=== PATIENT | female | born 1990 | race Caucasian/White ===

== ENCOUNTER 2016-07-28 14:13 | Emergency (ER) | payer BC, OTHER ==
[~2016-07-28] VITALS: Ht 180.3 cm; Wt 93.0 kg
[~2016-07-28 14:13] MED LIST: PREN1TAB81 PO; RANI150T12 PO
[2016-07-28] MEDS ORDERED: NEOMY/BACITRA/POLYMYXIN B OINT UD PACKET TP ONE ×2 (14:45→15:02)
[2016-07-28] MEDS ORDERED: LIDOCAINE HCL 1% 20 ML VIAL IJ ONE (14:45)
--- NOTE | 2016-07-28 15:00 | NUR ---
Patient discharged to home in stable conditon. Written and verbal after care instructions given. Patient verbalizes understanding of instructions.
== END 2016-07-28 15:23 | disposition home or self-care (01) ==
LOC: ER 14:14
DX: S61.211A Laceration without foreign body of left index finger without damage to nail, initial encounter (principal); F10.20 Alcohol dependence, uncomplicated; Z88.0 Allergy status to penicillin; W45.8XXA Other foreign body or object entering through skin, initial encounter; Y93.89 Activity, other specified; Y99.8 Other external cause status; Y92.89 Other specified places as the place of occurrence of the external cause
CPT/HCPCS: A4217; A4663; J3490

== ENCOUNTER 2016-08-22 23:50 | Emergency (ER) | payer BC ==
[~2016-08-22] VITALS: Ht 177.8 cm; Wt 88.5 kg
--- NOTE | 2016-08-23 00:01 | NUR ---
MSE DONE DR LE AT BEDSIDE.
--- NOTE | 2016-08-23 00:08 | NUR ---
Patient discharged to home in stable conditon. Written and verbal after care instructions given. Patient verbalizes understanding of instructions.
== END 2016-08-23 00:10 | disposition home or self-care (01) ==
LOC: ER 23:50
DX: J06.9 Acute upper respiratory infection, unspecified (principal); F10.20 Alcohol dependence, uncomplicated; Z88.0 Allergy status to penicillin
CPT/HCPCS: 99281; A4663

== ENCOUNTER 2016-09-15 18:07 | Emergency (ER) | payer BC ==
[~2016-09-15] VITALS: Ht 180.3 cm; Wt 95.3 kg
--- NOTE | 2016-09-15 18:43 | NUR ---
DR LEO AT THE BEDSIDE FOR EVAL AND EXAM.
--- NOTE | 2016-09-15 19:04 | NUR ---
Patient discharged to home in stable conditon. Written and verbal after care instructions given. Patient verbalizes understanding of instructions.
[2016-09-15 19:05] VITALS: BP 134/76
== END 2016-09-15 19:08 | disposition home or self-care (01) ==
LOC: ER 18:09
DX: J32.9 Chronic sinusitis, unspecified (principal); R51 Headache; G50.0 Trigeminal neuralgia; F10.20 Alcohol dependence, uncomplicated; Z88.0 Allergy status to penicillin
CPT/HCPCS: A4663

== ENCOUNTER 2016-10-27 13:49 | Emergency (ER) | payer BC ==
[~2016-10-27] VITALS: Ht 172.7 cm; Wt 95.3 kg
[2016-10-27] MEDS ORDERED: METOCLOPRAMIDE HCL 10 MG/2 ML VIAL IV ONE (14:30)
[2016-10-27] MEDS ORDERED: diphenhydrAMINE 50 MG/1 ML VIAL IV ONE (14:30)
[2016-10-27] MEDS ORDERED: IV NORMAL SALINE 1000 ML BAG IV ONE (14:30)
[2016-10-27] MEDS ORDERED: KETOROLAC TROMETHAMINE 30 MG INJ IVP ONE (14:30)
[2016-10-27] MEDS ORDERED: KETOROLAC TROMETHAMINE 30 MG INJ ONE (14:43)
[2016-10-27] MEDS ORDERED: diphenhydrAMINE 50 MG/1 ML VIAL ONE (14:43)
[2016-10-27] MEDS ORDERED: METOCLOPRAMIDE HCL 10 MG/2 ML VIAL ONE (14:43)
[2016-10-27 14:46] LABS: BASOPHILS # (AUTO) 0.1 K/uL (0.0-8.0); BASOPHILS % (AUTO) 0.9 % (0.0-2.0); EOSINOPHILS # (AUTO) 0.1 K/uL (0.0-0.7); EOSINOPHILS % (AUTO) 1.4 % (0.0-7.0); HEMOGLOBIN 10.6 G/DL (12.0-16.0); LYMPHOCYTES # (AUTO) 1.8 K/UL (0.8-4.8); LYMPHOCYTES % (AUTO) 29.3 % (20.5-51.5); MEAN CORPUSCULAR HEMOGLOBIN 26.1 UUG (27.0-31.0); MEAN CORPUSCULAR HGB CONC 32 g/dL (32.0-37.0); MONOCYTES # (AUTO) 0.4 K/UL (0.1-1.30); MONOCYTES % (AUTO) 5.9 % (0.0-11.0); NEUTROPHILS # (AUTO) 3.9 K/UL (1.8-8.9); NEUTROPHILS % (AUTO) 62.5 % (38.5-71.5); PLATELET COUNT (AUTO) 284 K/UL (150-450); RED BLOOD CELL COUNT(AUTO) 4.07 MIL/UL (4.2-5.4); WHITE BLOOD COUNT (AUTO) 6.3 K/UL (4.0-11.2)
[2016-10-27 14:49] LABS: CREATININE 0.6 mg/dL (0.6-1.3); POTASSIUM 3.7 mmol/L (3.5-5.1)
--- NOTE | 2016-10-27 14:52 | NUR ---
Pt c/o right sided head and facial pain, 6.5-7/10, hx [place] Palsy. Also c/o being "light headed." Pt denies CP, SOB, n/v, no other complaints, minimal distress noted.
--- NOTE | 2016-10-27 15:42 | NUR ---
Pt reports pain now down to 1/10, but she is still dizzy.
--- NOTE | 2016-10-27 17:03 | NUR ---
Remove IV, 20g left AC, intact, site okay, bandaged. Gave pt d/c instructions, verbalized understanding.
== END 2016-10-27 17:11 | disposition home or self-care (01) ==
LOC: ER 13:49
DX: R51 Headache (principal); G51.0 Bell's palsy; F10.20 Alcohol dependence, uncomplicated; Z88.0 Allergy status to penicillin
CPT/HCPCS: 36415; 84703; 85025; A4663; J1200; J1885; J2765; J7030

== ENCOUNTER 2017-01-01 11:22 | Emergency (ER) | payer BC ==
[~2017-01-01] VITALS: Ht 172.7 cm; Wt 95.3 kg
--- NOTE | 2017-01-01 11:59 | NUR ---
Patient discharged to home in stable conditon. Written and verbal after care instructions given. Patient verbalizes understanding of instructions.
[2017-01-01] MEDS ORDERED: KETOROLAC TROMETHAMINE 30 MG INJ IM ONE (12:00)
[2017-01-01] MEDS ORDERED: KETOROLAC TROMETHAMINE 30 MG INJ ONE (12:13)
== END 2017-01-01 12:02 | disposition home or self-care (01) ==
LOC: ER 11:22
DX: M54.9 Dorsalgia, unspecified (principal)
CPT/HCPCS: 96372; 99283; A4663; J1885